=== PATIENT | male | born 1940 | race Native Hawaiian/Other Pacific Islander ===

== ENCOUNTER 2016-08-17 18:31 | Emergency (ER) | payer MEDICARE ==
[2016-08-17 19:37] VITALS: BP 151/93
--- NOTE | 2016-08-18 01:12 | Emergency Department Report ---
Abscess Boil HPI - HPI Chief Complaint: Wound/Laceration Stated Complaint: INFECTED RT SHOULDER Time Seen by Provider: 08/17/16 23:45 Duration: 1 Week History: Yes Pain, Yes Purulent Drainage, No Fever, No Numbness, No Foreign Body , No Previous History, No Insect Bite HPI: This is a 75-year-old male that presents with a abscess to the right anterior shoulder. Patient stated has noticed redness and swelling to the area the past week. Patient states has had purulent drainage with minimal bleeding. Patient denies any fever, numbness or tingling, chest pain, shortness of breath, or headache. Patient stated it was a bullae and he popped the area with purulent drainage. Patient does not seem toxic or ill in appearance. No signs of distress noted. Home Medications: Home Medications Medication Instructions Recorded Confirmed Last Taken Aspirin EC [Aspirin Enteric Coated 81 mg PO QDAY 06/07/15 08/17/16 08/17/16 TAB] AtorvaSTATin [Lipitor] 10 mg PO QDAY 06/07/15 08/17/16 08/17/16 Cetirizine HCl [Allergy Relief] 10 mg PO DAILY 06/07/15 08/17/16 06/07/15 Ergocalciferol [Vitamin D2] 1 cap PO QWEEK 06/07/15 08/17/16 Unknown Finasteride [Proscar] 5 mg PO QDAY 06/07/15 08/17/16 08/17/16 Ibuprofen [Motrin] 800 mg PO Q8HR PRN 06/07/15 08/17/16 Unknown Nitroglycerin [Nitrostat] 0.4 mg SL Q5M PRN 06/07/15 08/17/16 Unknown Tamsulosin [Flomax] 0.4 mg PO QDAY 06/07/15 08/17/16 08/17/16 Previous Rx's Medication Instructions Recorded Last Taken Type Ibuprofen [Motrin 600 MG tab] 600 mg PO Q8H PRN 5 Days 08/18/16 Unknown Rx Sulfamethoxazole/Trimethoprim 1 each PO BID 5 Days 08/18/16 Unknown Rx [Bactrim DS TAB] Allergies/Adverse Reactions: Allergies Allergy/AdvReac Type Severity Reaction Status Date / Time No Known Allergies Allergy Verified 06/07/15 11:16 ED Review of Systems ROS: Stated complaint: INFECTED RT SHOULDER Other details as noted in HPI Constitutional: denies: chills, fever Eyes: denies: eye pain, eye discharge, vision change ENT: denies: ear pain, throat pain Respiratory: denies: cough, shortness of breath, wheezing Cardiovascular: denies: chest pain, palpitations Endocrine: no symptoms reported Gastrointestinal: denies: abdominal pain, nausea, diarrhea Genitourinary: denies: urgency, dysuria Musculoskeletal: denies: back pain, joint swelling, arthralgia Skin: denies: rash, lesions Neurological: denies: headache, weakness, paresthesias Psychiatric: denies: anxiety, depression Hematological/Lymphatic: denies: easy bleeding, easy bruising ED Past Medical Hx - Past Medical History Previous Medical History?: Yes Hx Hypertension: Yes - Surgical History Past Surgical History?: No - Social History Smoking Status: Never Smoker Substance Use Type: None - Medications Home Medications: Home Medications Medication Instructions Recorded Confirmed Last Taken Type Aspirin EC [Aspirin Enteric Coated 81 mg PO QDAY 06/07/15 08/17/16 08/17/16 History TAB] AtorvaSTATin [Lipitor] 10 mg PO QDAY 06/07/15 08/17/16 08/17/16 History Cetirizine HCl [Allergy Relief] 10 mg PO DAILY 06/07/15 08/17/16 06/07/15 History Ergocalciferol [Vitamin D2] 1 cap PO QWEEK 06/07/15 08/17/16 Unknown History Finasteride [Proscar] 5 mg PO QDAY 06/07/15 08/17/16 08/17/16 History Ibuprofen [Motrin] 800 mg PO Q8HR PRN 06/07/15 08/17/16 Unknown History Nitroglycerin [Nitrostat] 0.4 mg SL Q5M PRN 06/07/15 08/17/16 Unknown History Tamsulosin [Flomax] 0.4 mg PO QDAY 06/07/15 08/17/16 08/17/16 History Ibuprofen [Motrin 600 MG tab] 600 mg PO Q8H PRN 5 Days 08/18/16 Unknown Rx Sulfamethoxazole/Trimethoprim 1 each PO BID 5 Days 08/18/16 Unknown Rx [Bactrim DS TAB] ED Abscess Boil Physical Exam - Exam General: Vital signs noted. No distress. Alert and acting appropriately. Front/Back of Body, Lg (Color): 1 - 1 cm open purulent abscess Size: 1 cm Exam: Yes Tenderness, Yes Normal Neurologic Exam, Yes Normal Circulation, No Fluctuance, No Surrounding Cellulites/Erythema, No Lymphangitis, No Crepitation , No Heart Murmur Exam: GENERAL: The patient is a well-developed, well-nourished male in no apparent distress. He is alert and oriented x3. VITAL SIGNS: Stable. HEENT: Head is normocephalic and atraumatic. Extraocular muscles are intact. Pupils are equal, round, and reactive to light and accommodation. Nares appeared normal. Mouth is well hydrated and without lesions. Mucous membranes are moist. Posterior pharynx clear of any exudate or lesions. NECK: Supple. No carotid bruits. No lymphadenopathy or thyromegaly. LUNGS: Clear to auscultation. HEART: Regular rate and rhythm without murmur. ABDOMEN: Soft, nontender, and nondistended. Positive bowel sounds. No hepatosplenomegaly was noted. EXTREMITIES: Without any cyanosis, clubbing, rash, lesions or edema. NEUROLOGIC : Cranial nerves II through XII are grossly intact. PSYCHIATRIC: Flat affect, but denies suicidal or homicidal ideations. SKIN: One centimeter open purulent abscess to the right anterior shoulder. Minimal bleeding. No erythema. ED Course Vital Signs 08/17/16 19:30 Temperature 98 F Pulse Rate 78 Respiratory 18 Rate Blood Pressure 151/93 O2 Sat by Pulse 100 Oximetry Critical care attestation.: If time is entered above; I have spent that time in minutes in the direct care of this critically ill patient, excluding procedure time. ED Medical Decision Making - Medical Decision Making ED course: 75-year-old male that presents with right anterior shoulder open purulent abscess 1- 1 cm open purulent abscess. With sterile gloves I have used Betadine to clean the area. I compress the area to drain the purulent area. About 3 mL of purulent drainage with minimal bleeding noted. I then irrigated with normal saline 10 mL. I then used Betadine to clean the area again. Iodoform 1/4 inch is placed to wound. Sterile dressing was applied to the site. Patient tolerated well. No signs of distress noted. 2- Bactrim was ordered the time of discharge. I instructed the patient to take full course of antibiotics as prescribed. 3-at the time of discharge the patient did not seem toxic or ill in appearance. No signs and distress noted. 4- I also instructed the patient to observe for signs and symptoms of increased redness, swelling, fever or chills ,pus, drainage to the area. 5- patient was instructed to return to the ED at [facility] for packing removal. ED Disposition Clinical Impression: Abscess Disposition: DISCHARGED TO HOME OR SELFCARE Is pt being admited?: No Does the pt Need Aspirin: No Condition: Stable Instructions: Acute Wound Care (ED) Additional Instructions: observe for signs and symptoms of increased redness, swelling, fever or chills ,pus, drainage to the area. Follow-up with your primary care doctor in 3-5 days. Take medication as prescribed. Return back to [facility] ED in 2 days for packing removal. Prescriptions: Ibuprofen [Motrin 600 MG tab] 600 mg PO Q8H PRN 5 Days PRN Reason: Pain Sulfamethoxazole/Trimethoprim [Bactrim DS TAB] 1 each PO BID 5 Days Referrals: PRIMARY CARE, [Primary Care Provider] - 3-5 Days [facility] [Outside] - 3-5 Days [facility] [Outside] - 3-5 Days Forms: Work/School Release Form(ED)
== END 2016-08-18 01:25 | disposition home or self-care (01) ==
LOC: ED 18:31
DX: L02.413 Cutaneous abscess of right upper limb (principal); I10 Essential (primary) hypertension; Z79.82 Long term (current) use of aspirin
CPT/HCPCS: 99282

== ENCOUNTER 2016-08-20 18:42 | Emergency (ER) | payer MEDICARE ==
--- NOTE | 2016-08-20 20:20 | Emergency Department Report ---
- General Chief Complaint: Laceration/Recheck/Suture Stated Complaint: FOLLOW UP Time Seen by Provider: 08/20/16 19:57 Source: patient Mode of arrival: Ambulatory Limitations: No Limitations - History of Present Illness Initial Comments: 75-year-old male past medical history hypertension and hyperlipidemia presents for wound check right upper shoulder region. Patient had I&D of abscess 2 days ago presents for wound check and packing removal. Patient denies any fevers chills no difficulty ranging his right shoulder patient states pain is significantly reduced and area of swelling has significantly improved since abscess was drained 2 days ago. Patient has visible gauze on skin overlying the right shoulder and mid clavicular region. Onset/Timin -: days(s) Extremity Location: Right: Shoulder (abscess drained from anterior right shoulder region/clavicle region 2 days ago) 1 - Site of abscess drainage, covered with gauze Patient Tetanus UTD: Yes - Related Data Home Medications Medication Instructions Recorded Confirmed Last Taken Aspirin EC [Aspirin Enteric Coated 81 mg PO QDAY 06/07/15 08/17/16 08/17/16 TAB] AtorvaSTATin [Lipitor] 10 mg PO QDAY 06/07/15 08/17/16 08/17/16 Cetirizine HCl [Allergy Relief] 10 mg PO DAILY 06/07/15 08/17/16 06/07/15 Ergocalciferol [Vitamin D2] 1 cap PO QWEEK 06/07/15 08/17/16 Unknown Finasteride [Proscar] 5 mg PO QDAY 06/07/15 08/17/16 08/17/16 Ibuprofen [Motrin] 800 mg PO Q8HR PRN 06/07/15 08/17/16 Unknown Nitroglycerin [Nitrostat] 0.4 mg SL Q5M PRN 06/07/15 08/17/16 Unknown Tamsulosin [Flomax] 0.4 mg PO QDAY 06/07/15 08/17/16 08/17/16 Previous Rx's Medication Instructions Recorded Last Taken Type Ibuprofen [Motrin 600 MG tab] 600 mg PO Q8H PRN 5 Days 08/18/16 Unknown Rx Sulfamethoxazole/Trimethoprim 1 each PO BID 5 Days 08/18/16 Unknown Rx [Bactrim DS TAB] Allergies Allergy/AdvReac Type Severity Reaction Status Date / Time No Known Allergies Allergy Verified 06/07/15 11:16 ED Review of Systems ROS: Stated complaint: FOLLOW UP Other details as noted in HPI Constitutional: denies: chills, fever Eyes: denies: eye pain, eye discharge, vision change ENT: denies: ear pain, throat pain Respiratory: denies: cough, shortness of breath, wheezing Cardiovascular: denies: chest pain, palpitations Endocrine: no symptoms reported Gastrointestinal: denies: abdominal pain, nausea, diarrhea Genitourinary: denies: urgency, dysuria Musculoskeletal: denies: back pain, joint swelling, arthralgia Skin: as per HPI (abscess drained 2 days ago). denies: rash, lesions Neurological: denies: headache, weakness, paresthesias Psychiatric: denies: anxiety, depression Hematological/Lymphatic: denies: easy bleeding, easy bruising ED Past Medical Hx - Past Medical History Previous Medical History?: Yes Hx Hypertension: Yes - Surgical History Past Surgical History?: No - Social History Smoking Status: Never Smoker Substance Use Type: None - Medications Home Medications: Home Medications Medication Instructions Recorded Confirmed Last Taken Type Aspirin EC [Aspirin Enteric Coated 81 mg PO QDAY 06/07/15 08/17/16 08/17/16 History TAB] AtorvaSTATin [Lipitor] 10 mg PO QDAY 06/07/15 08/17/16 08/17/16 History Cetirizine HCl [Allergy Relief] 10 mg PO DAILY 06/07/15 08/17/16 06/07/15 History Ergocalciferol [Vitamin D2] 1 cap PO QWEEK 06/07/15 08/17/16 Unknown History Finasteride [Proscar] 5 mg PO QDAY 06/07/15 08/17/16 08/17/16 History Ibuprofen [Motrin] 800 mg PO Q8HR PRN 06/07/15 08/17/16 Unknown History Nitroglycerin [Nitrostat] 0.4 mg SL Q5M PRN 06/07/15 08/17/16 Unknown History Tamsulosin [Flomax] 0.4 mg PO QDAY 06/07/15 08/17/16 08/17/16 History Ibuprofen [Motrin 600 MG tab] 600 mg PO Q8H PRN 5 Days 08/18/16 Unknown Rx Sulfamethoxazole/Trimethoprim 1 each PO BID 5 Days 08/18/16 Unknown Rx [Bactrim DS TAB] ED Physical Exam - General Limitations: No Limitations General appearance: alert, in no apparent distress - Head Head exam: Present: atraumatic, normocephalic - Eye Eye exam: Present: normal appearance, PERRL, EOMI - ENT ENT exam: Present: mucous membranes moist - Neck Neck exam: Present: normal inspection - Respiratory Respiratory exam: Present: normal lung sounds bilaterally. Absent: respiratory distress - Cardiovascular Cardiovascular Exam: Present: regular rate, normal rhythm. Absent: systolic murmur, diastolic murmur, rubs, gallop - GI/Abdominal GI/Abdominal exam: Present: soft, normal bowel sounds - Rectal Rectal exam: Present: deferred - Extremities Exam Extremities exam: Present: normal inspection - Expanded Upper Extremity Exam Right Shoulder Exam: Present: tenderness, swelling (site of abscess clean not indurated not swollen. Small amount of iodoform gauze poking out) - Back Exam Back exam: Present: normal inspection - Neurological Exam Neurological exam: Present: alert, oriented X3 - Psychiatric Psychiatric exam: Present: normal affect, normal mood - Skin Skin exam: Present: warm, dry, intact, normal color. Absent: rash ED Course Vital Signs 08/20/16 19:30 Temperature 98.1 F Pulse Rate 74 Respiratory 20 Rate Blood Pressure 133/78 O2 Sat by Pulse 99 Oximetry ED Medical Decision Making - Medical Decision Making A/P: Visit for wound check status post incision and drainage of abscess 1-patient states his clinical symptoms are much better minimal to no pain no fevers or chills reported 2-site is still draining tiny amount of pus small amount of blood site not indurated. 3-1/2 inches of iodoform gauze removed from site, repacked with tumor inches of iodoform gauze. I instructed the patient to remove this gauze tomorrow morning and to continue to cover the area with clean gauze until it closes over and reepitheliazizes 3-patient states he will follow-up with his primary doctor tomorrow 4-patient on course of Bactrim, I advised him to adhere to this course. I advised patient to return if he experiences any difficulty moving his right shoulder any fevers chills nausea or vomiting or reaccumulation of abscess Critical care attestation.: If time is entered above; I have spent that time in minutes in the direct care of this critically ill patient, excluding procedure time. ED Disposition Clinical Impression: Wound check, abscess Disposition: DISCHARGED TO HOME OR SELFCARE Is pt being admited?: No Does the pt Need Aspirin: No Condition: Stable Instructions: Acute Wound Care (ED), Incision and Drainage (ED) Forms: Work/School Release Form(ED) Time of Disposition: 20:20
[2016-08-20 20:42] VITALS: BP 130/70
== END 2016-08-20 20:42 | disposition home or self-care (01) ==
LOC: ED 18:42
DX: Z48.00 Encounter for change or removal of nonsurgical wound dressing (principal); I10 Essential (primary) hypertension; Z79.82 Long term (current) use of aspirin
CPT/HCPCS: 99282